=== PATIENT | male | born 1990 | race Two or more races ===

== ENCOUNTER 2018-11-17 03:52 | Emergency (ER) | payer BC, OTHER ==
[2018-11-17 03:58] VITALS: BP 121/64
--- NOTE | 2018-11-17 04:04 | EDM.PDOC ---
ED HPI GENERAL MEDICAL PROBLEM - General Chief Complaint: Upper Extremity Injury/Pain Stated Complaint: SHOULDER PAIN Time Seen by Provider: 11/17/18 04:00 Source of Information: Reports: Patient History Limitations: Reports: No Limitations - History of Present Illness INITIAL COMMENTS - FREE TEXT/NARRATIVE: This is a 28-year-old male. He was wrestling with some friends this evening and he is dislocated his left shoulder. He comes to the ER for evaluation. His shoulder is been dislocated now for about 4 hours. He denies any other acute injuries. He has no history of dislocation of the shoulder in the past. Left Shoulder Pain Score (Numeric/FACES): 7 - Related Data Allergies Allergy/AdvReac Type Severity Reaction Status Date / Time codeine Allergy Hallucinati Verified 11/17/18 03:58 ons Home Meds: Home Meds . [No Known Home Meds] 11/17/18 [History] Past Medical History - Past Health History Medical/Surgical History: Denies Medical/Surgical History Other Genitourinary History: Patient had surgery of Varicocelle 3 years ago Social & Family History - Tobacco Use Smoking Status *Q: Current Every Day Smoker Years of Tobacco use: 11 Packs/Tins Daily: 0.5 - Recreational Drug Use Recreational Drug Use: No Review of Systems - Review of Systems Review Of Systems: See Below Constitutional: Reports: No Symptoms Eyes: Reports: No Symptoms Ears: Reports: No Symptoms Nose: Reports: No Symptoms Mouth/Throat: Reports: No Symptoms Respiratory: Reports: No Symptoms Cardiovascular: Reports: No Symptoms GI/Abdominal: Reports: No Symptoms Genitourinary: Reports: No Symptoms Musculoskeletal: Reports: Other (As per history of present illness) Skin: Reports: No Symptoms Neurological: Reports: No Symptoms Psychiatric: Reports: No Symptoms ED EXAM, GENERAL - Physical Exam Exam: See Below Exam Limited By: No Limitations General Appearance: Alert, WD/WN, No Apparent Distress Eye Exam: Bilateral Eye: Normal Inspection Ears: Normal External Exam Nose: Normal Inspection Throat/Mouth: Normal Inspection, Normal Lips, Normal Voice, No Airway Compromise Head: Normocephalic Neck: Supple Respiratory/Chest: No Respiratory Distress, Lungs Clear, Normal Breath Sounds Cardiovascular: Regular Rate, Rhythm, No Murmur GI/Abdominal: Soft Back Exam: Full Range of Motion Extremities: Other (Left shoulder appears to be dislocated with the fossa being empty, it appears it is an anterior inferior dislocation, neurovascular is intact distally in his fingers, he got a good radial pulse and good capillary refill.) Neurological: Alert, Oriented Psychiatric: Normal Affect, Normal Mood Skin Exam: Warm, Dry ED TRAUMA EXTREMITY PROCEDURES - Joint Reduction Site: Shoulder (L) Sedation: Conscious Sedation Post-Reduction Imaging: Completely Reduced Joint Reduction Complications: No Progress/Comments: The patient was placed on oxygen and a monitor. 20 mg of etomidate was infused in the IV. He went to sleep peacefully the left shoulder was reduced without difficulty. The patient awoke stating that his left shoulder feels 100% better. He was put in a sling and swath. Neurovascular is intact prior to the procedure and post procedure with a good radial pulse. He has full function of his digits and his wrist. Course - Vital Signs Last Recorded V/S: Last Vital Signs Temp 98.5 F 11/17/18 03:56 Pulse 108 H 11/17/18 03:56 Resp 18 11/17/18 03:56 BP 121/64 11/17/18 03:56 Pulse Ox 98 11/17/18 03:56 - Orders/Labs/Meds Orders: Active Orders 24 hr Category Date Time Status Shoulder 1V Lt [CR] Stat Exams 11/17/18 04:22 Taken Shoulder Comp Lt [CR] Stat Exams 11/17/18 04:03 Taken Meds: Medications Discontinued Medications Generic Name Dose Route Start Last Admin Trade Name Otfq PRN Reason Stop Dose Admin Etomidate 20 mg 11/17/18 04:16 11/17/18 04:19 Amidate IVPUSH 11/17/18 04:17 20 mg ONETIME ONE Administration - Radiology Interpretation Free Text/Narrative:: Initial x-ray showed a dislocated shoulder on the left that was inferior and anterior Reduction x-ray of the left shoulder shows good position - Re-Assessments/Exams Free Text/Narrative Re-Assessment/Exam: 11/17/18 04:34 I spoke to the patient after he awoke the reduction of the left shoulder was without difficulty or complexity. He is awake and he is talking and the shoulder feels much better and we will watch him for about 10-15 minutes and as long as he is able to get up and walk normally will let him go. I did talk to him about being in the sling for about 4 days after which he can start allowing the arm to hang but he is not to do any heavy lifting and he is not to do any overhead work for at least 2 weeks. I will give him the name of the education specialist application internship for him to follow up. 11/17/18 05:17 Patient is fully awake and sitting up in bed and he wants to go home. Departure - Departure Time of Disposition: 05:17 Disposition: Home, Self-Care 01 Condition: Good Clinical Impression: Dislocation of left shoulder joint Qualifiers: Encounter type: initial encounter Qualified Code(s): S43.005A - Unspecified dislocation of left shoulder joint, initial encounter - Discharge Information *PRESCRIPTION DRUG MONITORING PROGRAM REVIEWED*: Not Applicable *COPY OF PRESCRIPTION DRUG MONITORING REPORT IN PATIENT VALORIE: Not Applicable Instructions: Shoulder Dislocation Referrals: Kashif Elliott MD [Physician] - Forms: ED Department Discharge Additional Instructions: Wear the sling for at least 4 days after which she may take it off and let the arm hanging naturally, once her out of the sling do not do any heavy lifting or overhead work for at least 1-2 weeks to allow the shoulder to tighten up, follow -up with the orthopedist later this week for recheck or return to the ER if there is any problems - My Orders Last 24 Hours: My Active Orders 11/17/18 04:03 Shoulder Comp Lt [CR] Stat 11/17/18 04:22 Shoulder 1V Lt [CR] Stat - Assessment/Plan Last 24 Hours: My Active Orders 11/17/18 04:03 Shoulder Comp Lt [CR] Stat 11/17/18 04:22 Shoulder 1V Lt [CR] Stat
[2018-11-17] MEDS ORDERED: Etomidate 2 MG/ML 20 ML SDV IVPUSH ONE (04:16)
--- NOTE | 2018-11-19 09:36 | CR ---
Left shoulder: Three views of the left shoulder were obtained. Comparison: No previous study. Anterior subcoracoid dislocation is seen. Small impacted fracture is noted within the posterolateral humeral head. No additional bony abnormality is seen. Impression: 1. Dislocated left shoulder with mildly impacted fracture within the humeral head. Diagnostic code #3
--- NOTE | 2018-11-19 09:39 | CR ---
Left shoulder: Single AP view of the left shoulder was obtained. Comparison: Prior shoulder study performed earlier on the same day (4:12 AM). Previous dislocated left shoulder has been reduced. No additional abnormality is seen on this single AP view study. Impression: 1. Previous dislocation has been reduced. Diagnostic code #1
== END 2018-11-17 05:49 | disposition home or self-care (01) ==
LOC: JD.ED 03:52
DX: S43.015A Anterior dislocation of left humerus, initial encounter (principal); F17.210 Nicotine dependence, cigarettes, uncomplicated; Z88.5 Allergy status to narcotic agent; Y93.72 Activity, wrestling
CPT/HCPCS: 23650; 73020; 73030; 96374; 99152; 99283; J3490; 23655